=== PATIENT | male | born 1995 | race Caucasian/White ===

== ENCOUNTER 2024-06-09 17:59 | Emergency (ER) | payer OTHER, SELFPAY ==
--- NOTE | ~2024-06-09 | XR_ITS ---
EXAMINATION: XR shoulder RT min 2V DATE: 06/09/2024 18:29 INDICATION: Right shoulder injury and pain. TECHNIQUE: 4 views of right shoulder were obtained. COMPARISON: None. FINDINGS: Alignment is normal. No fracture. There is a radiopaque marker at proximal humeral diaphysi s from prior surgery. Joint spaces are normal. IMPRESSION: 1. No fracture. Reviewed, dictated and finalized at location A. IMPRESSION: 1. No fracture.
[2024-06-09 18:02] VITALS: BP 132/81; PULSE 85; RESP 20; TEMP 36.6; O2SAT 99
--- NOTE | 2024-06-09 18:04 | ED.GENADULT ---
HPI - General Adult General Chief complaint: Extremity Injury, Upper Stated complaint: right shoulder pain Source: patient Mode of arrival: ambulatory Limitations: no limitations History of Present Illness HPI narrative: 29 years old white male with pooling enter not capable above the level of his head at the end of April, felt a pop at the right shoulder. Has been not going back to work since, workman's comp. Patient was seen at [place] emergency room 1 week ago for the same problem and had x-ray of the right shoulder and was discharged on Tylenol and ibuprofen to follow up with his orthopedic. Patient is telling me that he had right shoulder surgery by Dr. Diaz November 2023 for biceps tendon injury. He denies any fever, chills, nausea, vomiting. Related Data Allergies Allergy/AdvReac Type Severity Reaction Status Date / Time prednisone Allergy Hallucinati Verified 06/09/24 18:08 ng Review of Systems Review of Systems: All systems reviewed & are unremarkable except as noted in HPI and below Exam Narrative: General appearance: Well-developed, well-nourished Skin: Normal color Head: Normocephalic, nontraumatic Eyes: Clear conjunctiva ENT: Oropharynx normal, ears normal, nose normal Neck: Supple, nontender Chest and respiratory: Airway patent, no respiratory distress, no accessory muscle use Heart: Regular rate/rhythm Abdomen: Soft, nontender, no organomegaly, quiet bowel sounds Vascular: Normal peripheral pulses, normal capillary refill. Musculoskeletal: Slight diffuse tenderness of the right shoulder, slightly swollen compared to the left 1, positive surgical scar, limited range of movement, maximum 90 degree abduction Neurologic: Alert and oriented ?3, RN TELEPHONIC is normal as tested, no gross motor deficit Course Vital Signs Vital signs: Vital Signs Temperature 36.6 C 06/09/24 18:02 Pulse Rate 85 06/09/24 18:02 Respiratory Rate 20 06/09/24 18:02 Blood Pressure 132/81 06/09/24 18:02 Pulse Oximetry 99 06/09/24 18:02 Oxygen Delivery Room Air 06/09/24 18:02 Temperature 36.6 C 06/09/24 18:02 Pulse Rate 85 06/09/24 18:02 Respiratory Rate 20 06/09/24 18:02 Blood Pressure 132/81 06/09/24 18:02 Pulse Oximetry 99 06/09/24 18:02 Oxygen Delivery Room Air 06/09/24 18:02 Medical Decision Making MDM Narrative Medical decision making narrative: differential diagnosis include right shoulder sprain/ strain versus right rotator cuff injury X-ray of the right shoulder showed no acute abnormalities Patient need to be evaluated by Orthopedic for possible physical therapy, cortisone injection and possible Surgery after having MRI Vital Signs Vital Signs: Vital Signs Temperature 36.6 C 06/09/24 18:02 Pulse Rate 85 06/09/24 18:02 Respiratory Rate 20 06/09/24 18:02 Blood Pressure 132/81 06/09/24 18:02 Pulse Oximetry 99 06/09/24 18:02 Oxygen Delivery Room Air 06/09/24 18:02 Temperature 36.6 C 06/09/24 18:02 Pulse Rate 85 06/09/24 18:02 Respiratory Rate 20 06/09/24 18:02 Blood Pressure 132/81 06/09/24 18:02 Pulse Oximetry 99 06/09/24 18:02 Oxygen Delivery Room Air 06/09/24 18:02 Imaging Data My impression: x-ray right shoulder showed no acute osseous abnormality Critical Care Time Critical Care Time Critical Care Time: No Discharge Plan Discharge Clinical Impression: Injury of right rotator cuff Patient Disposition: Home, Self-Care Condition: Stable Instructions: Rotator Cuff Injury (ED) Additional Instructions: call your orthopedic as soon as possible for further evaluation Take Tylenol as needed Prescriptions:
== END 2024-06-09 18:52 | disposition home or self-care (01) ==
PROVIDERS: Emergency Provider Emergency Medicine
DX: S46.001A Unspecified injury of muscle(s) and tendon(s) of the rotator cuff of right shoulder, initial encounter (principal); X58.XXXA Exposure to other specified factors, initial encounter
CPT/HCPCS: 73030; 99283

== ENCOUNTER 2025-05-20 13:28 | Emergency (ER) | payer SELFPAY ==
[2025-05-20 13:29] VITALS: BP 112/78; PULSE 84; RESP 18; TEMP 36.6; O2SAT 100
--- NOTE | 2025-05-20 13:48 | ED_ITS ---
HPI - Skin/Abscess/Foreign Bdy General Chief complaint: Skin/Abscess/Foreign Body Stated complaint: insect bite Time Seen by Provider: 05/20/25 13:48 Source: patient Mode of arrival: ambulatory Limitations: no limitations History of Present Illness HPI narrative: 30-year-old male with no significant past medical history presents to the ED with -- right sloan blister surrounded by an erythematous lesion measuring approximately 5 cm. He has had this for the past 4 days. -- He has pain around skin lesion and extends medially abduct the leg, thigh and up to the right groin. -- He has fever and chills. Does not remember being bit by an insect or a spider. He has reclusive spiders in his backyard. MD complaint: rash and insect bite/sting Onset (ago): day(s) ( Four days) Tetanus up to date: yes Location: RLE ( right sloan) Severity: moderate Quality: aching Pain Consistency: constant Relieving factors: none Exacerbating factors: none Context: other ( unsure how he got the skin lesion) Associated symptoms: fever and chills Treatments prior to arrival: none Related Data Allergies Allergy/AdvReac Type Severity Reaction Status Date / Time prednisone Allergy Hallucinati Verified 05/20/25 14:03 ng Review of Systems 2 Review of Systems: All systems reviewed & are unremarkable except as noted in HPI and below Exam 2 Narrative: afebrile Const: General: no acute distress Nutritional Appearance: well nourished Orientation/consciousness: patient oriented x3 Limitations: no limitations HENMT: Head: normal to inspection Ears: external ears normal F antoine/Nose/Sinus: Normal external nose present Face and sinus: normal facial exam Mouth: Yes Normal oral and palatal mucosa present Throat: posterior oropharynx normal Eyes: Conjunctivae: conjunctivae normal Pupils: Equal, round and reactive pupils present EOM: EOMs intact bilaterally Direct Ophthalmoscopy: no photophobia Neck: Neck: normal visual inspection, no lymphadenopathy and no meningeal signs Chest: Chest palpation & inspection: normal inspection of the chest Resp: Effort & Inspection: normal respiratory effort Auscultation: clear to auscultation bilaterally Cardio: Rate: regular rate Rhythm: regular rhythm GI: GI Palp: Yes Soft to palpation Auscultation: normal bowel sounds O ther: no tenderness/ rigidity /rebound : General: Yes no CVA tenderness Back/Spine/Pelvis: Back: no CVA tenderness Skin: General skin exam: normal color Other: right sloan has a 1 cm blister surrounded by an erythematous rash with a diameter of 5 cm. Tender on palpation. Right inguinal pain without any palpable lymphadenopathy. Neuro: General: patient oriented x3, moves all extremities, no meningeal signs, no focal motor deficits and CN's II-XI intact bilaterally Speech: n ormal speech Extrem: General: normal to inspection ( Right sloan 5 cm erythematous lesion with a central 1 cm blister) Psych: Mental Status: mental status grossly normal Affect: normal affect Attitude: cooperative Course Course Emergency Course: right sloan cellulitis-- blood cultures have been done. Normal white cell count. Blood sugar is normal. Vital Signs Vital signs: Vital Signs Temperature 36.6 C 05/20/25 13:29 Pulse Rate 84 05/20/25 13:29 Respiratory Rate 18 05/20/25 13:29 Blood Pressure 112/78 05/20/25 13:29 Pulse Oximetry 100 05/20/25 13:29 Oxygen Delivery Room Air 05/20/25 13:29 Temperature 36.6 C 05/20/25 13:29 Pulse Rate 84 05/20/25 13:29 Respiratory Rate 18 05/20/25 13:29 Blood Pressure 112/78 05/20/25 13:29 Pulse Oximetry 100 05/20/25 13:29 Oxygen Delivery Room Air 05/20/25 13:29 MDM - Skin/Abscess/Foreign Bdy MDM Narrative Medical decision making narrative: Right sloan cellulitis. Differential Diagnosis Differential diagnosis: Likely abscess of skin or subcutaneous tissue Lab Data 05/20/25 14:13 05/20/25 14:13 Labs: Lab Results 05/20/25 Range/Units 14:13 WBC 7.6 (4.8-10.8) K/mm3 RBC 4.81 (4.70-6.10) M/mm3 Hgb 14.7 (14.0-18.0) g/dL Hct 41.5 (40.0-54.0) % MCV 86.3 (78.0-102.0) fL MCH 30.6 (27.0-31.0) pg MCHC 35.4 (32-36) g/dL RDW 11.5 L (11.6-14.4) % Plt Count 223 (150-420) K/mm3 MPV 10.8 (8.7-11.0) fl Immature Gran % (Auto) 0.4 H (0.0-0.0) % Neut % (Auto) 71.3 H (50.0-70.0) % Lymph % (Auto) 20.6 (18.0-42.0) % [place] % (Auto) 6.6 (2.0-11.0) % Eos % (Auto) 0.8 L (1.0-6.0) % Baso % (Auto) 0.3 (0.0-1.0) % Lymph # (Auto) 1.56 (1.10-4.50) K/mm3 [place] # (Auto) 0.50 (0.10-0.90) K/mm3 Eos # (Auto) 0.06 (0.02-0.50) K/mm3 Baso # (Auto) 0.02 (0.00-0.10) K/mm3 Abs Immat Gran (auto) 0.03 H (0.00-0.00) K/mm3 Absolute Neuts (auto) 5.40 (1.70-7.20) K/mm3 Absolute Nucleated RBC 0.00 (0.00-0.00) K/mm3 Nucleated RBC % 0.0 (0-0.0) % Sodium 140 (137-145) mmol/L Potassium 3.8 (3.4-5.0) mmol/L Chloride 105 (98-107) mmol/L Carbon Dioxide 28 (22-30) mmol/L Anion Gap 7 (4-12) mmol/L BUN 13 (9-20) mg/dL Creatinine 0.97 (0.7-1.3) mg/dL Estim Creat Clear Calc 93 ml/min Estimated GFR > 60 (59 - ) Glucose 104 (65-110) mg/dL Calculated Osmolality 290 (285-295) mOsm/kg Lactic Acid 0.8 (0.4-2.0) mmol/L Calcium 9.7 (8.4-10.2) mg/dL Total Bilirubin 0.8 (0.2-1.3) mg/dL AST 15 L (17-59) U/L ALT 11 (6-50) U/L Alkaline Phosphatase 52 (38-126) U/L Total Protein 7.8 (6.3-8.2) g/dL Albumin 4.8 (3.5-5.1) g/dL Discharge Plan Discharge Clinical Impression: Cellulitis Patient Disposition: Home Condition: Stable Instructions: Antibiotic Form, Cellulitis (ED) Patient Language: Uz[place] Prescriptions: New amoxicillin-pot clavulanate 875-125 mg tablet 1 tablet PO Q12H Qty: 14 0RF Follow-up/Referrals: UNKNOWN,DOCTOR [Non-Staff] - Time of Disposition: 14:37
[2025-05-20 14:18] LABS: Hematocrit 41.5 % (40.0-54.0); Hemoglobin 14.7 g/dL (14.0-18.0); Immature Granulocyte Percent A 0.4 % (0.0-0.0); Lymphocytes Absolute Auto 1.56 K/mm3 (1.10-4.50); Mean Corpuscular HGB Conc 35.4 g/dL (32-36); Mean Corpuscular Hemoglobin 30.6 pg (27.0-31.0); Mean Corpuscular Volume 86.3 fL (78.0-102.0); Nucleated Red Blood Cells Absolute Auto 0.00 K/mm3 (0.00-0.00); Nucleated Red Blood Cells Perc 0.0 % (0-0.0); Platelet Count Result 223 K/mm3 (150-420); Red Blood Count 4.81 M/mm3 (4.70-6.10); White Blood Count 7.6 K/mm3 (4.8-10.8)
[2025-05-20 14:29] LABS: Alanine Aminotransferase 11 U/L (6-50); Albumin Level 4.8 g/dL (3.5-5.1); Alkaline Phosphatase 52 U/L (38-126); Anion Gap 7 mmol/L (4-12); Aspartate Amino Transferase 15 U/L (17-59); Bilirubin,Total 0.8 mg/dL (0.2-1.3); Blood Urea Nitrogen 13 mg/dL (9-20); Calcium 9.7 mg/dL (8.4-10.2); Carbon Dioxide 28 mmol/L (22-30); Chloride 105 mmol/L (98-107); Estimated CRCL calculation 93 ml/min; Estimated Glomerular Filt Rate > 60; Glucose 104 mg/dL (65-110); Osmolality Calculated 290 mOsm/kg (285-295); Potassium 3.8 mmol/L (3.4-5.0); Sodium 140 mmol/L (137-145); Total Protein 7.8 g/dL (6.3-8.2)
[2025-05-20 14:45] VITALS: BP 117/76; PULSE 73; RESP 16; TEMP 36.7; O2SAT 100
--- NOTE | 2025-05-22 13:20 | PC.NURSE ---
Preliminary blood culture report; no growth detected at this time.
--- NOTE | 2025-05-23 12:46 | PC.NURSE ---
preliminary blood cultures x2 reviewed. no growth in 24 hours.
--- NOTE | 2025-05-24 13:42 | PC.NURSE ---
preliminary blood cultures x2 reviewed. no growth in 48 hours
--- NOTE | 2025-05-27 13:18 | PC.NURSE ---
final blood cultures x2 reviewed. no growth in five days
== END 2025-05-20 14:47 | disposition home or self-care (01) ==
PROVIDERS: Emergency Provider Internal Medicine Critical Care Medicine
DX: L03.115 Cellulitis of right lower limb (principal)
CPT/HCPCS: 36415; 80053; 83605; 85025; 99283